=== PATIENT | female | born 1960 | race Caucasian/White ===

== ENCOUNTER 2020-02-12 17:33 | Emergency (ER) | payer OTHER ==
[~2020-02-12] VITALS: Ht 157.5 cm; Wt 77.1 kg
[~2020-02-12 17:33] MED LIST: ADDERALL 20 MG20 M1 PO; ALBUTEROL2.5 MG/31 INH; ASPIR 8181 M1 PO; BLACK COHOSH40 M1 PO; FISH OIL 1,001000 M2 PO; HYDROCODON-ACE1 EAC7 PO; HYDROCODONE-AP1 EAC6 PO; MAXZIDE-25 MG1 EACH PO; MELATONIN5 M1 PO; MOBIC15 MG PO; PROTONIX40 M1 PO; VALIUM5 MG PO; VENTOLIN HFA 1818 GM INH; VYTORIN 10-201 EACH PO
[2020-02-12] MEDS ORDERED: KEFLEX500 M1 PO (19:22)
[2020-02-12 20:08] VITALS: BP 132/74
== END 2020-02-12 20:09 | disposition home or self-care (01) ==
LOC: M.ERS 17:33
DX: S62.663B Nondisplaced fracture of distal phalanx of left middle finger, initial encounter for open fracture (principal); I10 Essential (primary) hypertension; K21.9 Gastro-esophageal reflux disease without esophagitis; Z98.890 Other specified postprocedural states; Z90.49 Acquired absence of other specified parts of digestive tract; Z88.8 Allergy status to other drugs, medicaments and biological substances; W31.89XA Contact with other specified machinery, initial encounter; Y93.89 Activity, other specified; Y92.89 Other specified places as the place of occurrence of the external cause; Y99.8 Other external cause status